=== PATIENT | female | born 1990 | race Caucasian/White ===

== ENCOUNTER 2022-01-24 02:45 | Emergency (ER) | payer OTHER ==
[~2022-01-24] VITALS: Ht 154.9 cm; Wt 49.9 kg
== END 2022-01-24 03:54 | disposition home or self-care (01) ==
LOC: ER 02:45
DX: O03.4 Incomplete spontaneous abortion without complication (principal); R10.9 Unspecified abdominal pain
CPT/HCPCS: 99283; A9270

== ENCOUNTER → 2023-05-15 | Outpatient (CLI) | payer OTHER | LOC: LAB SHORT 19:05 → LAB 19:05 | DX: O20.0 Threatened abortion (principal) | CPT/HCPCS: 84702 ==

== ENCOUNTER → 2023-05-17 | Outpatient (CLI) | payer OTHER | LOC: LAB SHORT 18:47 | DX: O20.0 Threatened abortion (principal) | CPT/HCPCS: 84702 ==

== ENCOUNTER → 2023-10-10 | Outpatient (CLI) | payer OTHER ==
[2023-10-10 14:33] LABS: Hematocrit 38.4 % (33.0-51.0); Hemoglobin 12.6 g/dL (11.5-16.0)
== END ==
LOC: LAB SHORT 13:28 → LAB 13:28
PROVIDERS: Registered Nurse Community Health
DX: Z34.92 Encounter for supervision of normal pregnancy, unspecified, second trimester (principal)
CPT/HCPCS: 82950; 85014; 85018

== ENCOUNTER 2023-12-14 16:39 | Inpatient (IN) | payer OTHER ==
[2023-12-14] VITALS (14 sets, daily range): BP systolic 114–135; BP diastolic 59–70
[~2023-12-14] VITALS: Ht 154.9 cm; Wt 59.5 kg
[2023-12-14] MEDS ORDERED: Oxytocin 10 Unit / ML Vial IM PRN (20:20)
[2023-12-14] MEDS ORDERED: Methylergonovine Maleate 0.2MG / ML 1ML Amp IM PRN ×2 (20:20→22:10)
[2023-12-14] MEDS ORDERED: Tranexamic Acid 100 ML IV SCH (20:20)
[2023-12-14] MEDS ORDERED: Acetaminophen 500 MG Tab PO PRN (20:20)
[2023-12-14] MEDS ORDERED: Misoprostol 200 MCG Tab PR PRN ×2 (20:20→22:15)
[2023-12-14] MEDS ORDERED: Carboprost Tromethamine 250 MCG/ML 1ML Amp IM PRN (20:20)
[2023-12-14] MEDS ORDERED: Misoprostol 200 MCG Tab BC PRN (20:20)
[2023-12-14] MEDS ORDERED: OXYTOCIN/RINGER'S LACTATE 500 ML IV PRN (20:20)
[2023-12-14] MEDS ORDERED: FentaNYL 2mcg/ml-Bup 0.1% Epd 250 ML EPI PRN (20:20)
[2023-12-14] MEDS ORDERED: Ondansetron HCl 2 MG / ML 2ML Vial IV PRN (20:20)
[2023-12-14] MEDS ORDERED: ePHEDrine Sulfate 50 MG/ML 1ML Injection XX PRN (20:20)
[2023-12-14] MEDS ORDERED: Lactated Ringer's 1,000 ML IV PRN (20:20)
[2023-12-14] MEDS ORDERED: Calcium Carbonate 500 MG Tab Chew PO SCH (20:20)
[2023-12-14] MEDS ORDERED: Lactated Ringer's 1,000 ML IV SCH ×3 (20:20→22:10)
[2023-12-14] MEDS ORDERED: FentaNYL Citrate 50 MCG/ML 2 ML Injection IV PRN (20:25)
[2023-12-14] MEDS ORDERED: FentaNYL Citrate 50 MCG/ML 2 ML Injection ONE (20:31)
[2023-12-14] MEDS ORDERED: PRENATAL TABLE1 EAC2 PO (20:44)
[2023-12-14] MEDS ORDERED: ASPI81CH PO (20:44)
[2023-12-14 21:05] LABS: BASOPHILS ABSOLUTE AUTO 0.07 K/mm3 (0.00-0.23); BASOPHILS PERCENT AUTO 0 % (0-2); EOSINOPHILS ABSOLUTE AUTO 0.17 K/mm3 (0.00-0.68); EOSINOPHILS PERCENT AUTO 1 % (0-6); Hematocrit 39.2 % (33.0-51.0); Hemoglobin 13.3 g/dL (11.5-16.0); IMMATURE GRAN ABSOLUTE AUTO 0.15 K/mm3 (0.00-0.10); IMMATURE GRAN PERCENT AUTO 1 % (0-1); LYMPHOCYTES ABSOLUTE AUTO 3.41 K/mm3 (0.84-5.20); LYMPHOCYTES PERCENT AUTO 22 % (21-46); MONOCYTES ABSOLUTE AUTO 1.04 K/mm3 (0.16-1.47); MONOCYTES PERCENT AUTO 7 % (4-13); Mean Corpuscular HGB 28.2 pg (26.0-34.0); Mean Corpuscular HGB Conc 33.9 g/dL (31.5-36.5); Mean Corpuscular Volume 83 fL (80-100); Mean Platelet Volume 10.6 fL (9.1-12.4); NEUTROPHILS ABSOLUTE AUTO 10.87 K/mm3 (1.96-9.15); NEUTROPHILS PERCENT AUTO 69 % (41-73); Platelet Count 288 K/mm3 (150-400); RDW Coefficient Variation 13.3 % (11.7-14.2); RDW Standard Deviation 40.6 fL (35.1-46.3); Red Blood Cell Count 4.72 M/mm3 (3.80-5.20); White Blood Cell Count 15.71 K/mm3 (4.00-11.30)
[2023-12-14] MEDS ORDERED: Ketorolac Tromethamine 30mg Vial IV PRN (22:10)
[2023-12-14] MEDS ORDERED: Measles/Mumps/Rubella Vaccine 0.5 ML Vial SC ONE (22:10)
[2023-12-14] MEDS ORDERED: Acetaminophen/Codeine 300-30 mg PO PRN (22:15)
[2023-12-14] MEDS ORDERED: Lanolin Cream TOP PRN (22:15)
[2023-12-14] MEDS ORDERED: Ibuprofen 400 MG Tab PO PRN (22:15)
[2023-12-14] MEDS ORDERED: Oxytocin 10 Unit / ML Vial IM ONE (22:15)
[2023-12-14] MEDS ORDERED: OXYTOCIN/RINGER'S LACTATE 500 ML IV SCH (22:15)
[2023-12-14] MEDS ORDERED: OxyCODONE 5 mg/Acetamin 325 mg TABLET PO PRN (22:15)
[2023-12-14] MEDS ORDERED: Acetaminophen 325 MG TABLET PO PRN (22:15)
[2023-12-14] MEDS ORDERED: Witch Hazel/Glycerin PADS TOP PRN (22:20)
[2023-12-14] MEDS ORDERED: Docusate Sodium 100 MG Cap PO PRN (22:20)
[2023-12-14] MEDS ORDERED: Benzocaine Topical Anesthetic Spray 60GM TOP PRN (22:20)
[2023-12-14] MEDS ORDERED: Diphth,Pertuss(Acell),Tet Vac 0.5 ML VIAL IM ONE (22:20)
[2023-12-14] MEDS ORDERED: Tranexamic Acid 100 ML IV PRN (22:25)
[2023-12-15 04:48] VITALS: BP 108/56
[2023-12-15 05:43] LABS: Hemoglobin 12.7 g/dL (11.5-16.0); Mean Corpuscular HGB 28.5 pg (26.0-34.0); Mean Corpuscular HGB Conc 34.3 g/dL (31.5-36.5); Mean Corpuscular Volume 83 fL (80-100); Platelet Count 265 K/mm3 (150-400); RDW Coefficient Variation 13.3 % (11.7-14.2); Red Blood Cell Count 4.46 M/mm3 (3.80-5.20); White Blood Cell Count 18.14 K/mm3 (4.00-11.30)
[2023-12-15 08:27] VITALS: BP 107/54
[2023-12-15] MEDS ORDERED: Prenatal Vit/FE Fumarate/FA 1 Tab PO SCH (09:00)
[2023-12-15] MEDS ORDERED: Acetaminophen 500 MG Tab PO PRN (11:05)
[2023-12-15 11:14] VITALS: BP 136/62
--- NOTE | 2023-12-15 11:23 | NUR ---
ASSUMED CARE AT 1045
[2023-12-15 15:39] VITALS: BP 101/52
[2023-12-15 19:47] VITALS: BP 108/54
[2023-12-15 22:39] VITALS: BP 118/55
--- NOTE | 2023-12-15 23:03 | NUR ---
DISCARGE SUMMARY: PATIENT WALKED OUT WITH FOB AND IN CARSEAT. ADVISED TO CALL [facility] OR PROVIDER WITH ANY QUESTIONS OR CONCERNS. PATIENT DENIUES ANY CONCERNS OR QUESTIONS AT THIS TIME.
== END 2023-12-15 22:49 | disposition home or self-care (01) | DRG 560 ==
LOC: BC 16:39 → OBS 16:39 → BC 20:00 → OBS 20:17 → BC 20:17
PROVIDERS: ADMIT Registered Nurse Community Health
PROC: 10E0XZZ Delivery of Products of Conception, External Approach (ICD-10-PCS; principal; 2023-12-14)
PROC: 10907ZC Drainage of Amniotic Fluid, Therapeutic from Products of Conception, Via Natural or Artificial Opening (ICD-10-PCS; 2023-12-14)
PROC: 3E0R3BZ Introduction of Anesthetic Agent into Spinal Canal, Percutaneous Approach (ICD-10-PCS; 2023-12-14)
PROC: 00HU33Z Insertion of Infusion Device into Spinal Canal, Percutaneous Approach (ICD-10-PCS; 2023-12-14)
PROC: 4A1HXCZ Monitoring of Products of Conception, Cardiac Rate, External Approach (ICD-10-PCS; 2023-12-14)
DX: O99.12 Other diseases of the blood and blood-forming organs and certain disorders involving the immune mechanism complicating childbirth (principal); D68.52 Prothrombin gene mutation; Z3A.37 37 weeks gestation of pregnancy; Z37.0 Single live birth; Z79.82 Long term (current) use of aspirin
CPT/HCPCS: 36415; 59025; 85025; 85027; 86850; 86900; 86901; 86923; A9270; J1885; J3010; J7120